=== PATIENT | female | born 1970 | race Caucasian/White ===

== ENCOUNTER 2017-10-08 06:21 | Day surgery (SDC) | payer OTHER ==
[~2017-10-08 06:21] MED LIST: ATENOLOL25 MG PO; HYDROCHLOROTHIA25 MG PO
== END 2017-10-08 16:31 | disposition home or self-care (01) ==
LOC: CIR.AMB 06:21
DX: N93.8 Other specified abnormal uterine and vaginal bleeding (principal); N84.0 Polyp of corpus uteri

== ENCOUNTER 2021-12-26 06:57 | Emergency (ER) | payer OTHER ==
[~2021-12-26] VITALS: Ht 167.6 cm; Wt 81.6 kg
== END 2021-12-26 11:25 | disposition home or self-care (01) ==
LOC: ER 06:57
DX: N75.1 Abscess of Bartholin's gland (principal)